=== PATIENT | female | born 1985 | race Caucasian/White ===

== ENCOUNTER 2018-09-02 12:28 | Emergency (ER) | payer OTHER ==
[~2018-09-02] VITALS: Ht 157.5 cm; Wt 63.5 kg
[~2018-09-02 12:28] MED LIST: APRISO0.375 GM PO; PREDNISONE20 MG PO
--- OUTSIDE RECORDS SUMMARY | 2018-09-02 12:31 | XMS REPORT | Clinical Summary ---
Author Author [facility] Organization [facility] Address Unknown Phone Unavailable Care Team Providers Care Digital Media Director Name Role Phone Ashley Rodney PCP Allergies No Known Allergies Medications End Date Status Medication Sig Dispensed Refills Start Date Active traZODone (DESYREL) 100 Take 100 mg 0 MG tablet by mouth nightly. Active Missing or Non-Formulary . 0 MedicationIndications: vivitrol SQ once a month Active busPIRone (BUSPAR) 10 MG Take 10 mg by 0 tablet mouth 3 (three) times daily. Active atomoxetine (STRATTERA) Take 10 mg by 0 10 MG capsule mouth daily. Active DULoxetine (CYMBALTA) 30 Take 30 mg by 0 MG capsule mouth daily. Active hydrOXYzine (ATARAX) 25 Take 25 mg by 0 MG tablet mouth 3 (three) times daily as needed for Itching. Active QUEtiapine (SEROQUEL) 100 Take 100 mg 0 MG tablet by mouth nightly. 10/30/2017 sulfamethoxazole-trimetho Take 1 tablet 6 tablet 0 prim (BACTRIM DS) 800-160 (160 mg of 8 mg per tablet trimethoprim total) by mouth 2 (two) times daily for 3 days smx-tmp DS (BACTRIM) 800-160 mg tabs (1tab q12 D10). Active Problems Not on file Encounters Care Team Description Date Type Specialty Edel Panchal MD UPPER ENDOSCOPY 08/08/2018 Surgery Ann-Marie Brooke MD 08/08/2018 Anesthesia Event Edel Panchal MD 08/08/2018 Hospital Encounter Pollo Flores MD Acute cystitis without hematuria (Primary Dx); History of ulcerative colitis; Bloody diarrhea; Lower abdominal pain 10/27/2017 Emergency Emergency Medicine after 09/01/2017 Social History Date Tobacco Use Types Packs/Day Years Used Current Some Day Smoker Smokeless Tobacco: Never Used Alcohol Use Drinks/Week oz/Week Comments No Sex Assigned at Date Recorded Not on file Industry Job Start Date Occupation Not on file Not on file Not on file Travel End Travel History Travel Start No recent travel history available. Last Filed Vital Signs Time Taken Vital Sign Reading 08/08/2018 2:10 PM CDT Blood Pressure 102/69 08/08/2018 2:10 PM CDT Pulse 89 08/08/2018 1:50 PM CDT Temperature 36.3 C (97.3 F) 08/08/2018 2:10 PM CDT Respiratory Rate 19 08/08/2018 2:10 PM CDT Oxygen Saturation 99% - Inhaled Oxygen - Concentration 08/08/2018 1:00 PM CDT Weight 63 kg (139 lb) 08/08/2018 1:00 PM CDT Height 154.9 cm (5' 1") 08/08/2018 1:00 PM CDT Body Mass Index 26.26 Plan of Treatment Not on file Procedures Comments Procedure Name Priority Date/Time Associated Diagnosis ENDO CASE CANCELLED IN 08/08/2018 Ulcerative pancolitis ROOM 2:00 PM CDT with other complication (HCC) Gastroesophageal reflux disease, esophagitis presence not specified Dyspepsia UPPER ENDOSCOPY 08/08/2018 Ulcerative pancolitis 2:00 PM CDT with other complication (HCC) Gastroesophageal reflux disease, esophagitis presence not specified Dyspepsia REPORT OF PROCEDURE - 08/08/2018 ENDOSCOPY URL 1:51 PM CDT POCT , URINE Routine 08/08/2018 1:[address] ABDOMEN/PELVIS WITH IV STAT 10/27/2017 CONTRAST 7:25 PM CDT POCT , URINE STAT 10/27/2017 2:39 PM CDT URINALYSIS W/ MICROSCOPIC STAT 10/27/2017 2:00 PM CDT CBC W/PLT COUNT & AUTO STAT 10/27/2017 DIFFERENTIAL 1:59 PM CDT BASIC METABOLIC PANEL (7) STAT 10/27/2017 1:59 PM CDT CBC W/PLT COUNT & AUTO STAT 10/27/2017 DIFFERENTIAL 1:59 PM CDT after 09/01/2017 Results * REPORT OF PROCEDURE - ENDOSCOPY URL (08/08/2018 1:51 PM CDT) Narrative Performed At * POCT , urine (08/08/2018 1:35 PM CDT) Only the most recent of 2 results within the time period is included. Test Urine, POC Negative Control line present?, Yes POC Background clear?, POC Yes UPT Cassette Lot #, POC [id number] UPT Cassette Expiration 12-10-2019 Date, POC Specimen Urine * CT abdomen pelvis with IV contrast (10/27/2017 7:25 PM CDT) Specimen Narrative Performed At FINAL REPORT [facility] scan of the abdomen and pelvis. HISTORY: Irritable bowel syndrome, ulcerative colitis. COMPARISON STUDY: None available. TECHNIQUE: Contiguous helical slices were acquired through the abdomen and pelvis post administration of intravenous contrast. No oral contrast was administered. This exam was performed according to our department dose optimization program which includes automated exposure control, adjustment of the mA and/or kV according to the patient's size and/or use of iterative reconstruction technique. FINDINGS: The lung bases are clear. The liver, spleen, pancreas, kidneys and adrenal glands are unremarkable. The gallbladder and biliary tree are within normal limits. There are no dilated loops of bowel seen to suggest obstruction. A normal appendix is seen. There is no free fluid or free air. No suspicious adenopathy is seen. A tampon is in place. Aorta is normal in caliber. Bone windows demonstrate no focal abnormality. IMPRESSION: 1. No definite acute abnormality seen. Signed: Jose Deshpande MD Report Verified Date/Time:10/27/2017 21:17:47 Reading Location: [facility] C013W Consult Reading Room Procedure Note Interface, External Ris In - 10/27/2017 9:19 PM CDT FINAL REPORT CT scan of the abdomen and pelvis. HISTORY: Irritable bowel syndrome, ulcerative colitis. COMPARISON STUDY: None available. TECHNIQUE: Contiguous helical slices were acquired through the abdomen and pelvis post administration of intravenous contrast. No oral contrast was administered. This exam was performed according to our department dose optimization program which includes automated exposure control, adjustment of the mA and/or kV according to the patient's size and/or use of iterative reconstruction technique. FINDINGS: The lung bases are clear. The liver, spleen, pancreas, kidneys and adrenal glands are unremarkable. The gallbladder and biliary tree are within normal limits. There are no dilated loops of bowel seen to suggest obstruction. A normal appendix is seen. There is no free fluid or free air. No suspicious adenopathy is seen. A tampon is in place. Aorta is normal in caliber. Bone windows demonstrate no focal abnormality. IMPRESSION: 1. No definite acute abnormality seen. Signed: Jose Deshpande MD Report Verified Date/Time: 10/27/2017 21:17:47 Reading Location: [address] Consult Reading Room Performing Organization Address City/State/Zipcode Phone Number [facility] * Urinalysis w/Microscopic (10/27/2017 2:00 PM CDT) Color, UA Light Yellow [facility] Clarity, UA Clear [facility] Specific [place], UA 1.011 1.001 - 1.035 [facility] pH, UA 6.0 5.0 - 8.0 [facility] Protein, UA Negative Negative [facility] Glucose, UA Negative Negative [facility] Ketones, UA Negative Negative [facility] Bilirubin, UA Negative Negative [facility] Blood, UA Moderate (A) Negative [facility] Nitrite, UA Negative Negative [facility] Leukocytes, UA Large (A) Negative [facility] Urobilinogen, UA 0.2 0.2 - 1.0 mg/dL [facility] RBC, UA 1 /HPF [facility] WBC, UA 24 /HPF [facility] Bacteria, UA Occasional [facility] Squam Epithel, UA 3 /HPF [facility] Specimen Source Urine, Clean Catch [facility] Specimen Urine Performing Organization Address City/State/Zipcode Phone Number [facility] [address] [place] [address] [facility] * CBC with platelet count + automated diff (10/27/2017 1:59 PM CDT) WBC 9.6 3.5 - 10.5 K/L [facility] RBC 4.41 3.93 - 5.22 M/L [facility] Hemoglobin 11.8 11.2 - 15.7 GM/DL [facility] Hematocrit 38.1 34.1 - 44.9 % [facility] MCV 86.4 79.4 - 94.8 fL [facility] MCH 26.8 25.6 - 32.2 pg [facility] MCHC 31.0 (L) 32.2 - 35.5 GM/DL [facility] RDW 15.2 (H) 11.7 - 14.4 % [facility] Platelets 279 150 - 450 K/CU MM [facility] MPV 9.2 (L) 9.4 - 12.3 fL [facility] nRBC 0 0 - 0 /100 WBC [facility] % Neutros 54 % [facility] % Lymphs 33 % [facility] % Monos 7 % [facility] % Eos 5 % [facility] % Baso 1 % [facility] # Neutros 5.15 1.56 - 6.13 K/L [facility] # Lymphs 3.17 1.18 - 3.74 K/L [facility] # Monos 0.63 (H) 0.24 - 0.36 K/L [facility] # Eos 0.47 (H) 0.04 - 0.36 K/L [facility] # Baso 0.10 (H) 0.01 - 0.08 K/L [facility] Immature 0 0 - 1 % [facility] Granulocytes-Relative [facility] Specimen Blood Performing Organization Address City/State/Zipcode Phone Number [address] [address] [facility] * Basic metabolic panel (Na, K+, Cl, CO2, Glu, Ca, BUN, Cr) (10/27/2017 1:59 PM CDT) Sodium 139 136 - 145 meq/L [facility] Potassium 4.0 3.5 - 5.1 meq/L [facility] Chloride 106 98 - 107 meq/L [facility] CO2 23 22 - 29 meq/L [facility] BUN 12 7 - 21 mg/dL [facility] Creatinine 0.81 0.57 - 1.25 mg/dL [facility] Glucose 86 70 - 105 mg/dL [facility] Calcium 9.8 8.4 - 10.2 mg/dL [facility] EGFR Comment: INSUFFICIENT CLINICAL mL/min/1.[address] [facility] DATA TO CALCULATE ESTIMATED [facility] GFR. Specimen Blood Performing Organization Address City/State/Zipcode Phone Number [address] [address] [facility] after 09/01/2017 Insurance Payer Benefit Subscriber ID Type Phone Address Plan / Group MEDICAID - MEDICAID [facility]GD [facility] xxxxxxxxx Medicaid CARE COMM STAR Contracted PLAN
--- OUTSIDE RECORDS SUMMARY | 2018-09-02 12:31 | XMS REPORT ---
Author Author [facility] Address Unknown Phone Unavailable Care Team Providers Care Head Men'S Golf Coach Name Role Phone Unavailable Unavailable Problems This patient has no known problems. Allergies, Adverse Reactions, Alerts This patient has no known allergies or adverse reactions. Medications This patient has no known medications. Results Test Description Test Time Test Comments Text Results Atomic Results Result Comments CT, ABDOMEN 2017-10-27 21:17:00 Reason for exam:->IRRITABLE BOWEL SYNDROMEReason for exam:->NAUSEAReason for exam:->ULCERATIVE COLITISIs the patient ?- >NoWhat is the patient's sedation requirement?->No Sedation FINAL REPORT CT scan of the abdomen [...] caliber. Bone windows demonstrate no focal abnormality. IMPRESSION:1. No definite acute abnormality seen. Signed: Ronald Deshpande MDReport Verified Date/Time: 10/27/2017 21:17:47 Reading Location: [facility] C013W Consult Reading Room C METABOLIC PANEL 2017-10-27 17:44:00 SODIUM (BEAKER) (test hhzf=678) 139 meq/L 136-145 POTASSIUM (BEAKER) (test putk=836) 4.0 meq/L 3.5-5.1 CHLORIDE (BEAKER) (test yfet=017) 106 meq/L 98-107 CO2 (BEAKER) (test vpas=245) 23 meq/L 22-29 BLOOD UREA NITROGEN (BEAKER) (test kwjx=624) 12 mg/dL 7-21 CREATININE (BEAKER) (test ytbw=187) 0.81 mg/dL 0.57-1.25 GLUCOSE RANDOM (BEAKER) (test wndf=434) 86 mg/dL 70-105 CALCIUM (BEAKER) (test enro=201) 9.8 mg/dL 8.4-10.2 EGFR (BEAKER) (test cqib=0575) mL/min/1.73 sq m INSUFFICIENT CLINICAL DATA TO CALCULATE ESTIMATED GFR. URINALYSIS W/ [id number] 14:25:00* Test Item Value Reference Range Comments COLOR (BEAKER) (test swfd=977) Light Yellow CLARITY (BEAKER) (test lmya=483) Clear SPECIFIC GRAVITY UA (BEAKER) (test rstz=572) 1.011 1.001-1.035 PH UA (BEAKER) (test douc=976) 6.0 5.0-8.0 PROTEIN UA (BEAKER) (test vyng=870) Negative Negative GLUCOSE UA (BEAKER) (test fqjk=050) Negative Negative KETONES UA (BEAKER) (test djes=645) Negative Negative BILIRUBIN UA (BEAKER) (test wpuc=728) Negative Negative BLOOD UA (BEAKER) (test aqqh=874) Moderate Negative NITRITE UA (BEAKER) (test ctjb=289) Negative Negative LEUKOCYTE ESTERASE UA (BEAKER) (test bopt=529) Large Negative UROBILINOGEN UA (BEAKER) (test japl=400) 0.2 mg/dL 0.2-1.0 RBC UA (BEAKER) (test rtay=969) 1 /HPF WBC UA (BEAKER) (test qbwt=803) 24 /HPF BACTERIA (BEAKER) (test mphi=438) Occasional SQUAMOUS EPITHELIAL (BEAKER) (test mkrf=196) 3 /HPF SOURCE(BEAKER) (test yewc=4938) Urine, Clean Catch CBC W/PLT COUNT & AUTO [id number] 14:07:00* Test Item Value Reference Range Comments WHITE BLOOD CELL COUNT (BEAKER) (test okxo=033) 9.6 K/ L 3.5-10.5 RED BLOOD CELL COUNT (BEAKER) (test qxec=917) 4.41 M/ L 3.93-5.22 HEMOGLOBIN (BEAKER) (test eovx=778) 11.8 GM/DL 11.2-15.7 HEMATOCRIT (BEAKER) (test xvvb=508) 38.1 % 34.1-44.9 MEAN CORPUSCULAR VOLUME (BEAKER) (test eytk=215) 86.4 fL 79.4-94.8 MEAN CORPUSCULAR HEMOGLOBIN (BEAKER) (test mjdg=738) 26.8 pg 25.6-32.2 MEAN CORPUSCULAR HEMOGLOBIN CONC (BEAKER) (test rpmu=249) 31.0 GM/DL 32.2-35.5 RED CELL DISTRIBUTION WIDTH (BEAKER) (test zjsx=199) 15.2 % 11.7-14.4 PLATELET COUNT (BEAKER) (test hwjh=256) 279 K/CU MM 150-450 MEAN PLATELET VOLUME (BEAKER) (test sxjq=501) 9.2 fL 9.4-12.3 NUCLEATED RED BLOOD CELLS (BEAKER) (test pbkp=712) 0 /100 WBC 0-0 NEUTROPHILS RELATIVE PERCENT (BEAKER) (test ondq=249) 54 % LYMPHOCYTES RELATIVE PERCENT (BEAKER) (test wpei=832) 33 % MONOCYTES RELATIVE PERCENT (BEAKER) (test illz=227) 7 % EOSINOPHILS RELATIVE PERCENT (BEAKER) (test bvic=412) 5 % BASOPHILS RELATIVE PERCENT (BEAKER) (test oxbq=814) 1 % NEUTROPHILS ABSOLUTE COUNT (BEAKER) (test taog=093) 5.15 K/ L 1.56-6.13 LYMPHOCYTES ABSOLUTE COUNT (BEAKER) (test nloj=577) 3.17 K/ L 1.18-3.74 MONOCYTES ABSOLUTE COUNT (BEAKER) (test alnb=507) 0.63 K/ L 0.24-0.36 EOSINOPHILS ABSOLUTE COUNT (BEAKER) (test crsj=157) 0.47 K/ L 0.04-0.36 BASOPHILS ABSOLUTE COUNT (BEAKER) (test kwau=151) 0.10 K/ L 0.01-0.08 IMMATURE GRANULOCYTES-RELATIVE PERCENT (BEAKER) (test ymhu=0650) 0 % 0-1
[2018-09-02 14:18] LABS: BASOPHILS # (AUTO) 0.1 (0.0-0.1); BASOPHILS % 0.9 % (0.0-1.0); EOSINOPHILS # (AUTO) 0.9 (0.0-0.4); EOSINOPHILS % 9.3 % (0.0-6.0); HEMOGLOBIN 14.2 g/dL (12.0-16.0); LYMPHOCYTES # (AUTO) 3.5 (1.0-3.2); LYMPHOCYTES % 35.8 % (18.0-39.1); MEAN CORPUSCULAR HGB CONC 34.6 g/dL (31-35); MEAN CORPUSCULAR VOLUME 89.5 fL (81-99); MONOCYTES # (AUTO) 0.6 (0.2-0.8); MONOCYTES % 6.4 % (4.4-11.3); NEUTROPHILS # (AUTO) 4.6 (2.1-6.9); NEUTROPHILS % 47.3 % (38.7-80.0); PLATELET COUNT 338 x10e3/uL (140-360); RED BLOOD COUNT 4.58 x10e6/uL (3.6-5.1); RED CELL DISTRIBUTION WIDTH 13.6 % (11.7-14.4)
[2018-09-02] MEDS ORDERED: SODIUM CHLORIDE 0.9% 1000ML 1,000 ML IV SCH (15:00)
[2018-09-02 15:29] LABS: INR 0.88; PROTHROMBIN TIME 12.4 seconds (11.9-14.5)
[2018-09-02 15:39] LABS: ALANINE AMINOTRANSFERASE 10 IU/L (0-55); ALBUMIN 4.1 g/dL (3.5-5.0); ALBUMIN/GLOBULIN RATIO 1.2 (0.8-2.0); ALKALINE PHOSPHATASE 74 IU/L (40-150); ANION GAP 12.2 mmol/L (8-16); BLOOD UREA NITROGEN 9 mg/dL (7-26); BUN/CREATININE RATIO 11 (6-25); CALCIUM 9.8 mg/dL (8.4-10.2); CARBON DIOXIDE 26 mmol/L (22-29); CHLORIDE 103 mmol/L (98-107); EST GLOMERULAR FILTRATION RATE > 60 ML/MIN (60-); GLUCOSE 85 mg/dL (74-118); POTASSIUM 4.2 mmol/L (3.5-5.1); SODIUM 137 mmol/L (136-145)
[2018-09-02 15:44] LABS: HCG,QUANTITATIVE < 1.20 mIU/mL (0-10)
--- NOTE | 2018-09-02 16:01 | Diagnostic Imaging Report ---
EXAM: Transabdominal and Transvaginal Pelvic Ultrasound INDICATION: ^vaginal bleeding for 1 month COMPARISON: None TECHNIQUE: Grayscale transverse and sagittal transabdominal and transvaginal images were obtained of the pelvis. Transvaginal imaging was medically necessary to better evaluate the endometrium and the adnexa. CLINICAL HISTORY: 33 year old A...; last menstrual period: 06/28/2018. FINDINGS: Uterus Orientation: Normal Size: 8.5 x 3.8 x 5.0 cm, Normal Mass: None Cervix: Normal Endometrium: Thickness: 0.2 cm, Normal. Appearance: Homogeneous echotexture without focal thickening. Right ovary: Not visualized. Left ovary: Size: 3.2 x 1.7 x 2.3 cm Mass/Cyst: 1.2 x 1.2 x 1.5 cm follicle. Adnexa: Normal Cul-de-sac: No free fluid IMPRESSION: Unremarkable pelvic ultrasound exam. Signed by: Dr. González Olmos M.D. on 09/02/2018 3:57 PM
[2018-09-02 16:51] LABS: BILIRUBIN,URINE NEGATIVE (NEGATIVE); CLARITY,URINE CLOUDY (CLEAR); COLOR,URINE YELLOW (YELLOW); KETONES,URINE NEGATIVE (NEGATIVE); LEUKOCYTE ESTERASE ,URINE NEGATIVE (NEGATIVE); NITRITE,URINE NEGATIVE (NEGATIVE); PROTEIN,URINE DIPSTICK NEGATIVE (NEGATIVE); URINE UROBILINOGEN 0.2 mg/dL (0.2 - 1)
[2018-09-02 17:06] LABS: EPITHELIAL CELLS,URINE RARE /LPF; WBC,URINE (MAN) 0-5 /HPF (0-5)
[2018-09-02 17:07] LABS: AMORPHOUS SEDIMENT,URINE MANY (FEW); MUCUS,URINE RARE (RARE); TRANSITIONAL EPI CELLS,URINE MODERATE
[2018-09-02] MEDS ORDERED: HYDROCODONE/APAP 5MG-325MG TAB PO ONE (17:30)
[2018-09-02 18:17] VITALS: BP 119/98
== END 2018-09-02 18:30 | disposition home or self-care (01) ==
LOC: ER 12:28
DX: N93.9 Abnormal uterine and vaginal bleeding, unspecified (principal); K51.90 Ulcerative colitis, unspecified, without complications; F41.9 Anxiety disorder, unspecified; F32.9 Major depressive disorder, single episode, unspecified
CPT/HCPCS: 36415; 76830; 80053; 81001; 84702; 85025; 85610; 85730; 87210; 87800; 99284